=== PATIENT | female | born 1990 | race Caucasian/White ===

== ENCOUNTER 2016-09-25 18:33 | Emergency (ER) | payer OTHER ==
--- NOTE | 2016-09-25 20:12 | PD ---
HPI Chief Complaint can't feel movement Date Seen: Sep 25, 2016 Time Seen: 19:30 Travel History International Travel<30 Days: No Contact w/Intl Traveler<30Days: No Known Affected Area: No History of Present Illness HPI Ms. Perez is a 26 yo G1 at an estimated 25 5/7 weeks (MARIBEL 01/03/2017) who presents with complaint of lack of movement. Patient reports that she has not ever felt movement, so was told over phone to seek reevaluation. Patient reports recently moving to [place] from [place]; she had prior care without any complications [place] and has upcoming appointment [facility] Thursday, 09/29. Patient reports ultrasound in approximately 20 weeks which was unremarkable for any or placental abnormalities; patient specifically denies gestational hypertension and any prior infections. Patient has not had glucose challenge test yet this . No vaginal bleeding, vaginal discharge, or abdominal pain. No shortness of breath, leg swelling, chest pain, dysuria, or other symptoms. Para: 0 : 1 History Past Medical History Medical History: Denies Significant Hx Obstetric History Obstetric History G1; no complications Past Surgical History Surgical History: No Previous Surgery Family History Narrative Family History Mother with gestational diabetes Social History Alcohol Use: No Tobacco Use: No Substance Abuse: No Allergies-Medications (Allergen,Severity, Reaction): Coded Allergies: No Known Allergies (Unverified , 09/25/16) Review of Systems General / Constitutional: No: Fever, Chills HENT: No: Headaches Cardiovascular: No: Chest Pain or Discomfort Respiratory: No: Cough, Short of Breath Gastrointestinal: No: Nausea, Vomiting Genitourinary: No: Urgency, Dysuria Physical Exam Narrative GENERAL: Well-nourished, well-developed patient. SKIN: Warm and dry. HEAD: Normocephalic and atraumatic. EYES: No scleral icterus. No injection or drainage. ENT: No nasal drainage noted. Mucous membranes pink. Airway patent. NECK: Supple, trachea midline. CARDIOVASCULAR: Regular rate and rhythm without murmurs RESPIRATORY: Breath sounds equal bilaterally. Clear to auscultation ABDOMEN/GI: Abdomen soft, non-tender, bowel sounds present, no rebound, no guarding. Gravid EXTREMITIES: No cyanosis or edema. BACK: Nontender without obvious deformity. No CVA tenderness. NEUROLOGICAL: Awake and alert. Motor and sensory function grossly within normal limits. FHT's: Category: 1 Baseline: 145 Reactive: Y Variability: Moderate Decels: None Data Data Orders Vital Signs (Adult) .ON ADMISSION (09/25/16 19:57) ^ Labor Status (09/25/16 19:57) MDM Medical Record Reviewed: Yes Narrative Course / MDM Ms. Perez is a 26 yo G1 at an estimated 25 5/7 weeks (MARIBEL 01/03/2017) Assessment: -Category 1 rhythm -Patient has not felt movement -Prior reassuring US at 20 weeks Plan: -Discussed with patient that reassuring prior US in combination with current Category 1 rhythm are very reassuring of viability -Will check US to assess fetus -US documented movement, heartbeat, and adequate amniotic fluid -Will recommend routine follow-up with [facility] Thursday as previously scheduled Diagnosis Diagnosis: Primary Impression: 25 weeks gestation of Additional Impression: Decreased movement Disposition: 01 DISCHARGE HOME Condition: Stable Patient Instructions: General Instructions, Early Labor Signs (ED), Movement (ED), Abdominal Pain in (ED) Departure Forms: Tests/Procedures Ciro Pérez MD R2 Sep 25, 2016 20:12
--- NOTE | 2016-09-25 20:36 | PD ---
History of Present Illness Date Seen: Sep 25, 2016 History of Present Illness This patient is a 26-year-old at 25 weeks gestation who presents with decreased movement. Patient is a transport patient from [place] in [place] she had her care there she is trying to establish care with the [facility] down here. She talked to Flora Pennington today and told her that she was not feeling the baby and had not felt the baby move significantly at all and so the nurse garment steamer told her to come here. She denies bleeding rupture the membranes or abdominal pain. Tonight her heart rate tracing is within normal limits with good variability and no large accelerations but at 25 weeks I would not expect a lot of accelerations normally. Ultrasound was done which shows an active fetus with good amniotic fluid and an anterior placenta, even while the baby is moving patient says she doesn't feel the baby move, but she did see the baby move. Impression/plan--decreased movement and a primiparous who is seeing the baby move tonight on ultrasound the baby is quite active as normal fluid and no abnormalities were noted, she'll follow-up with her OB provider Roger Sanchez II, MD Sep 25, 2016 20:36
[2016-10-08] MEDS ORDERED: PREN1MIS10 (14:34)
== END 2016-09-26 00:12 | disposition home or self-care (01) ==
LOC: HOBED 18:33
DX: O36.8120 Decreased fetal movements, second trimester, not applicable or unspecified (principal); Z3A.25 25 weeks gestation of pregnancy
CPT/HCPCS: 76815

== ENCOUNTER 2017-01-01 09:10 | Inpatient (IN) | payer OTHER ==
[2017-01-01] VITALS (13 sets, daily range): BP systolic 85–102; BP diastolic 49–62; PULSE 57–87; RESP 16; TEMP 97.6–99; O2SAT 97–100
[~2017-01-01] VITALS: Ht 157.5 cm; Wt 86.6 kg
[~2017-01-01 09:10] MED LIST: PREN1MIS10
[2017-01-01] MEDS ORDERED: DICLOFENAC SODIUM 37.5 MG/ML VIAL IV PUSH ONE ×2 (09:54→10:35)
[2017-01-01] MEDS ORDERED: ONDANSETRON HCL 4 MG/2 ML VIAL ONE ×2 (09:55→12:24)
[2017-01-01] MEDS ORDERED: MORPHINE SULFATE PF 5 MG/10 ML VIAL ONE (09:55)
[2017-01-01] MEDS ORDERED: OXYTOCIN 10 UNIT/ML AMP ONE (09:55)
[2017-01-01] MEDS ORDERED: LACTATED RINGER'S 1000 ML INJ 1,000 ML IV ONE (10:03)
--- NOTE | 2017-01-01 10:05 | HHI.HP ---
HPI Chief Complaint scheduled Date Seen: Jan 01, 2017 Time Seen: 09:45 (Fransisco Dubois MD R1) Travel History International Travel<30 Days: No Contact w/Intl Traveler<30Days: No Known Affected Area: No (Fransisco Dubois MD R1) History of Present Illness HPI Patient is a 26-year-old at 39 weeks and 5 days who presents for a scheduled for breech presentation. She reports an uncomplicated . She denies any leakage of fluid, vaginal bleeding, contractions. She endorses movement. Review of systems negative. Para: 0 : 1 (Fransisco Dubois MD R1) History Past Medical History Medical History: Denies Significant Hx (Fransisco Dubois MD) Obstetric History Obstetric History Patient reports this is her first . (Fransisco Dubois MD) Past Surgical History Surgical History: No Previous Surgery (Fransisco Dubois MD) Family History Narrative Family History Patient's mother has a history of gestational diabetes and emergent for cord around neck and associated decel's. (Fransisco Dubois MD R1) Social History Narrative Social History Patient lives with her mother. Alcohol Use: No Tobacco Use: No Substance Abuse: No (Fransisco Dubois MD R1) Allergies-Medications (Allergen,Severity, Reaction): Coded Allergies: No Known Allergies (Unverified , 12/25/16) Home Meds Reported Medications Vit W/ Ferrous Fumara (One A Day Womens 28-0.8 & 223 mg)1 Mis Mis 10/08/16 Review of Systems General / Constitutional: No: Fever, Chills Eyes: No: Blurred Vision, Visual changes HENT: No: Headaches Cardiovascular: No: Chest Pain or Discomfort, Edema Respiratory: No: Short of Breath Gastrointestinal: No: Nausea, Vomiting, Abdominal Pain Genitourinary: No: Dysuria Musculoskeletal: No: Edema Neurologic: No: Headache (Fransisco Dubois MD R1) Physical Exam Narrative GENERAL: Well-nourished, well-developed patient. SKIN: Warm and dry. HEAD: Normocephalic and atraumatic. EYES: No scleral icterus. No injection or drainage. ENT: No nasal drainage noted. Mucous membranes pink. Airway patent. NECK: Supple, trachea midline. No JVD. CARDIOVASCULAR: Regular rate and rhythm without murmurs, gallops, or rubs. RESPIRATORY: Breath sounds equal bilaterally. No accessory muscle use. ABDOMEN/GI: Abdomen soft, non-tender, bowel sounds present, no rebound, no guarding Gravid to about 40 weeks size FHT's: Category: Category 1 Baseline: 140 Reactive: + Variability: Moderate Decels: None EXTREMITIES: No cyanosis or edema. BACK: Nontender without obvious deformity. No CVA tenderness. NEUROLOGICAL: Awake and alert. Motor and sensory grossly within normal limits. Five out of 5 muscle strength in all muscle groups. Normal speech. (Fransisco Dubois MD R1) Assessment/Plan Problem List: (1) Breech presentation (2) Delivery by section for breech presentation Assessment and Plan Patient is a 26-year-old at 39 weeks and 5 days who presents for a scheduled for breech presentation. (Fransisco Dubois MD R1) Attending Attestation I saw an examined this patient. I personally reviewed the procedure as well as the risks including pain, bleeding, infection, injury to blood vessels, nerves, organs. I advised that primary delivery poses less risks to baby than vaginal breech delivery. (Jane Irvin MD) Fransisco Dubois MD R1 Jan 01, 2017 10:05 Jane Irvin MD Jan 01, 2017 10:45
[2017-01-01 10:16] LABS: AUTOMATED NEUTROPHIL # 6.2 TH/MM3 (1.8-7.7); BASOPHIL % 0.1 % (0.0-2.0); EOSINOPHIL # 0.1 TH/MM3 (0-0.4); HEMATOCRIT 38.1 % (35.0-46.0); HEMO FLAGS DIFF FINAL; LYMPH % 20.4 % (9.0-44.0); LYMPHOCYTE # 1.8 TH/MM3 (1.0-4.8); MEAN CELL VOLUME 90.4 FL (80.0-100.0); MEAN CORPUSCULAR HEMOGLOBIN 29.9 PG (27.0-34.0); MEAN CORPUSCULAR HGB CONC 33.1 % (32.0-36.0); MONO % 7.9 % (0.0-8.0); NEUT % 70.6 % (16.0-70.0); PLATELET COUNT 173 TH/MM3 (150-450); RED BLOOD COUNT 4.21 MIL/MM3 (4.00-5.30); RED CELL DISTRIBUTION WIDTH 14.6 % (11.6-17.2); WHITE BLOOD COUNT 8.8 TH/MM3 (4.0-11.0)
[2017-01-01 10:28] LABS: BACTERIA, URINE OCC /hpf; BLOOD, URINE NEG (NEG); COMMENT (UR) CULTURE INDICATED; CULTURE IF INDICATED CULTURE INDICATED; GLUCOSE,URINE NEG (NEG); KETONE, URINE NEG (NEG); MUCUS URINE FEW /lpf (OCC); NITRITE,URINE NEG (NEG); SQUAMOUS EPITHELIAL CELL URINE 7 /hpf (0-5); TRANSITIONAL EPI CELLS, URINE <1 /hpf; URINE COLOR YELLOW (YELLW/STRAW)
[2017-01-01] MEDS ORDERED: LACTATED RINGER'S 1000 ML INJ 1,000 ML IV SCH ×2 (10:33→23:33)
[2017-01-01] MEDS ORDERED: ceFAZolin INJ 1,000 MG VIAL ONE (10:34)
[2017-01-01] MEDS ORDERED: ceFAZolin 2 GM PREMIX 50 ML IV SCH (11:15)
[2017-01-01] MEDS ORDERED: CITRIC ACID-SODIUM CITRATE LIQ 30 ML UDC PO SCH (11:45)
[2017-01-01] MEDS ORDERED: ACETAMINOPHEN 1000 MG/100 ML VIAL IV ONE ×3 (12:51→19:15)
[2017-01-01] MEDS ORDERED: OXYTOCIN 30 UNITS-500ML PREMIX 500 ML ONE ×2 (14:53→15:31)
[2017-01-01] MEDS ORDERED: DEXTROSE (INFANT/PEDS) GEL 2.5 ML/GM (40%) TUBE ONE (15:27)
[2017-01-01] MEDS ORDERED: HYDROmorphone HCL PF 2 MG/ML VIAL ONE (15:52)
[2017-01-01] MEDS ORDERED: OXYTOCIN 30 UNITS-500ML PREMIX 500 ML IV ONE (18:45)
[2017-01-01] MEDS ORDERED: KETOROLAC TROMETHAMINE 60 MG/2 ML (IM) VIAL IM PRN ×2 (18:45)
[2017-01-01] MEDS ORDERED: SODIUM CHLORIDE 0.9% FLUSH 10 ML FLUSH IV FLUSH PRN (18:45)
[2017-01-01] MEDS ORDERED: oxyCODONE/ACETAMINOPHEN 5 MG/325 MG TAB PO PRN ×2 (18:45)
[2017-01-01] MEDS ORDERED: ONDANSETRON HCL 4 MG/2 ML VIAL IV PUSH PRN (18:45)
[2017-01-01] MEDS ORDERED: SIMETHICONE 80 MG CHEWABLE TAB PO PRN (18:45)
[2017-01-01] MEDS ORDERED: HYDROmorphone HCL PF 1 MG/ML VIAL IV ONE (19:15)
[2017-01-01] MEDS ORDERED: EPIDURAL-NALOXONE HCL 0.4 MG/ML AMP IV PRN (20:30)
[2017-01-01] MEDS ORDERED: EPIDURAL-DIPHENHYDRAMINE HCL 50 MG/ML VIAL IV PUSH PRN (20:30)
[2017-01-01] MEDS ORDERED: EPIDURAL-NO SYSTEMIC NARCOTICS PRN (20:30)
[2017-01-01] MEDS ORDERED: EPIDURAL-DIPHENHYDRAMINE HCL 50 MG CAP PO PRN (20:30)
[2017-01-01] MEDS ORDERED: EPIDURAL-DO NOT ADMINISTER ANTICOAGULANTS PRN (20:30)
[2017-01-01] MEDS: SODIUM CHLORIDE 0.9% FLUSH 10 ML FLUSH IV FLUSH SCH (21:00)
[2017-01-01] MEDS: DICLOFENAC SODIUM 37.5 MG/ML VIAL IV PUSH SCH (23:02)
[2017-01-02 06:00] LABS: AUTOMATED NEUTROPHIL # 6.9 TH/MM3 (1.8-7.7); BASOPHIL % 0.2 % (0.0-2.0); EOSINOPHIL # 0.1 TH/MM3 (0-0.4); EOSINOPHIL % 1.1 % (0.0-4.0); HEMO FLAGS DIFF FINAL; LYMPH % 14.8 % (9.0-44.0); LYMPHOCYTE # 1.3 TH/MM3 (1.0-4.8); MEAN CORPUSCULAR HGB CONC 34.1 % (32.0-36.0); MONO % 5.5 % (0.0-8.0); NEUT % 78.4 % (16.0-70.0); PLATELET COUNT 133 TH/MM3 (150-450); RED CELL DISTRIBUTION WIDTH 14.5 % (11.6-17.2); WHITE BLOOD COUNT 8.8 TH/MM3 (4.0-11.0)
[2017-01-02] MEDS: DICLOFENAC SODIUM 37.5 MG/ML VIAL IV PUSH SCH (06:29)
[2017-01-02 08:55] VITALS: BP 78/50; PULSE 60; RESP 16; TEMP 98.1
--- NOTE | 2017-01-02 09:22 | HHI.OB ---
Subjective Post Operative Day: 1 Remarks Pt seen and examined this morning.Postoperative day # 1 AFVSS overnight. Incision not draining. Decreased lochia. Denies dysuria. No breast tenderness. She is feeding the baby via breast and bottle. Appetite good. No nausea or vomiting this morning. Patient has not yet had a bowel movement. -flatus. Ambulating well. Denies calf pain or shortness of breath. Otherwise, she is doing well this morning and has no other concerns. (Braulio Giordano MD R2) Objective Vitals/I&O Vital Signs Date Time Temp Pulse Resp B/P Pulse Ox O2 Delivery O2 Flow Rate FiO2 01/02/17 08:55 98.1 60 16 01/02/17 08:55 78/50 01/01/17 17:40 57 16 85/49 01/01/17 17:40 97.6 01/01/17 16:38 97.6 70 16 85/50 01/01/17 15:45 98.0 68 16 99 01/01/17 15:45 92/50 01/01/17 15:30 81 16 101/62 99 01/01/17 15:15 78 16 100/52 100 01/01/17 15:00 98.7 81 16 98/53 98 01/01/17 14:45 78 16 101/50 99 01/01/17 14:30 81 16 102/56 01/01/17 14:30 97 01/01/17 14:15 78 16 01/01/17 14:15 99.0 99 01/01/17 14:15 98/52 01/01/17 11:35 76 01/01/17 11:30 69 01/01/17 10:00 16 01/01/17 09:55 87 (Braulio Giordano MD R2) Result Diagram: 01/02/17 0503 Objective Remarks GENERAL: Well-nourished, well-developed patient. CARDIOVASCULAR: Regular rate and rhythm without murmurs, gallops, or rubs. RESPIRATORY: Breath sounds equal bilaterally. No accessory muscle use. ABDOMEN/GI: Abdomen soft, non-tender, bowel sounds present. Incision: Clean, dry and intact. Fundus: Firm, non-tender below umbilicus. GENITOURINARY: Light to moderate bleeding. EXTREMITIES: No cyanosis or edema, non-tender, without signs of DVT. Medications and IVs Current Medications Medications (Trade) Dose Ordered Sig/Yanira Route Start Time Stop Time Status Last Admin (Lr 1000 ml Inj) 1,000 ml @ 100 mls/hr Q10H IV 01/01/17 23:33 01/02/17 19:32 01/01/17 23:03 (NS Flush) 2 ml BID IV FLUSH 01/01/17 21:00 (NS Flush) 2 ml UNSCH PRN IV FLUSH 01/01/17 18:45 01/02/17 06:29 (Mylicon Chew) 80 mg QID PRN PO 01/01/17 18:45 (Tylenol) 650 mg Q6H PRN PO 01/01/17 18:45 (Motrin) 600 mg Q6H PRN PO 01/01/17 18:45 (Percocet 5-325 Mg) 1 tab Q4H PRN PO 01/01/17 18:45 (Percocet 5-325 Mg) 2 tab Q4H PRN PO 01/01/17 18:45 (Rajni-Colace) 2 tab Q12H PRN PO 01/01/17 18:45 (M-M-R Ii Inj) 0.5 ml ONCE ONCE SQ 01/02/17 16:00 01/02/17 16:01 (Boostrix Inj) 0.5 ml ONCE ONCE IM 01/02/17 16:00 01/02/17 16:01 (Zofran Inj) 4 mg Q6H PRN IV PUSH 01/01/17 18:45 Miscellaneous Information NO SYSTEMIC NARCOTICS TO BE GIVEN FO... UNSCH PRN .XX 01/01/17 20:30 01/02/17 20:29 (Narcan Inj) 0.4 mg UNSCH PRN IV 01/01/17 20:30 01/02/17 20:29 (Benadryl Inj) 25 mg Q6H PRN IV PUSH 01/01/17 20:30 01/02/17 20:29 (Benadryl) 50 mg Q6H PRN PO 01/01/17 20:30 01/02/17 20:29 Miscellaneous Information ALL NURSING DEPARTMENTS UNSCH PRN .XX 01/01/17 20:30 01/02/17 20:29 (Braulio Giordano MD R2) Assessment/Plan Problem List: (1) Breech presentation (2) Delivery by section for breech presentation Assessment and Plan 26 y/o female who is POD# 1 s/p CXN. -Continue routine care. -Percocet and Motrin PRN pain. -Encouraged OOB. Advised pelvic rest for 6 wks. Will need a f/u appt. in 1-2 wks for incision check. -Re: ctrl, she would like to use condoms, and will further discuss control options with OB provider. -Anticipate discharge in 1-[address] Albaro MD (Braulio Giordano MD R2) Attending Attestation The exam, history, and the medical decision-making described in the above note were completed with the assistance of the resident provider. I reviewed and agree with the findings presented. I attest that I had a [id number] encounter with the patient on the same day, and personally performed and documented my assessment and findings in the medical record. (Jane Irvin MD) Braulio Giordano MD R2 Jan 02, 2017 09:22 Jane Irvin MD Jan 05, 2017 10:53
[2017-01-02] MEDS: IBUPROFEN 600 MG TAB PO PRN (14:46)
[2017-01-02] MEDS: DOCUSATE SODIUM 50 MG/SENNA 8.6 MG TAB PO PRN (14:46)
[2017-01-02] MEDS ORDERED: DIPHTH/TETANUS/ACEL PERTUSSIS (BOOSTER) 0.5 ML VIAL/PFS IM ONE (16:00)
[2017-01-02] MEDS ORDERED: MEASLES, MUMPS, RUBELLA VACCINE 0.5 ML VIAL SQ ONE (16:00)
[2017-01-02] MEDS: SODIUM CHLORIDE 0.9% FLUSH 10 ML FLUSH IV FLUSH SCH (21:00)
--- NOTE | 2017-01-02 22:25 | MP ---
cc: KATHY IRVIN MD DATE OF 89 DATE OF SURGERY 01/01/17 PREOPERATIVE DIAGNOSIS 1. Intrauterine at 39 weeks and one day 2. Breach presentation POSTOPERATIVE DIAGNOSIS 1. Intrauterine at 39 weeks and one day 2. Breach presentation PROCEDURE Primary low transverse caesarean delivery SURGEON Yusuf Irvin MD ANESTHESIA Spinal. IV FLUID 1500 mL Crystalloid URINE OUTPUT 100 mL clear yellow urine ESTIMATED BLOOD LOSS 500 mL DRAINS Hopkins to gravity COMPLICATIONS None. INDICATION The patient is a 26 year old 1 with intrauterine at 39 weeks and one day gestation with persistent breach presentation who presents for a scheduled primary caesarean delivery. SURGICAL FINDINGS 1. Normal pelvic anatomy 2. Male in incomplete breach presentation and clear amniotic fluid. 3. Intact placenta with three vessel cord 4. Hemostasis at completion of procedure PREOPERATIVE ANTIBIOTICS Ancef 2 grams IV PROCEDURE IN DETAIL After the risks, benefits and alternatives of primary caesarean delivery were reviewed with the patient and all questions were answered and consent verified, the patient was transported to the operating room where spinal anesthesia was administered by the anesthesia team. SCD hose were placed on the patient's lower extremities. The patient was placed in the dorsal supine position and a Hopkins catheter was inserted under sterile condition. The patient was the prepped and draped in the normal sterile fashion in the dorsal supine position with a leftward tilt. Time out procedure was performed. Anesthesia was tested and found to be adequate. A Pfannenstiel skin incision was made with a scalpel and carried down to the underlying fascia. The fascia was incised on either side of the midline and the incision was extended laterally with the Farrell scissors. The superior aspect of the fascial incision was grasped with Anthony clamps and the rectus muscles were dissected off bluntly and sharply. This was repeated along the inferior aspect of the fascial incision. The rectus muscles were in the midline. The underlying peritoneum was entered bluntly. The incision was stretched. Bladder blade was placed. Bladder flap was created with the Metzenbaum scissors and blunt and sharp dissection. The bladder blade was replaced over the bladder flap. An incision was then made in the lower uterine segment with the scalpel. The incision was extended with the index fingers. Clear amniotic fluid was noted upon rupture of membranes. breach was present at the incision. In palpating position, one foot was palpated and was flexed and the leg was brought out of the incision. The other foot was in the levon breach presentation. The hips were elevated out of the pelvbis. Then, the knee was flexed and the leg was delivered. Gentle traction was applied until the level of the scapulae were reached. The infant was rotated to either side and the arms were delivered by sweeping down the arm. A blue towel was wrapped around the baby and the was elevated. Pressure was applied to the chin and the head delivered. After approximately 30 seconds, the cord was clamped and cut and the was handed off to the waiting team. Cord blood sample was collected. The placenta was delivered with fundal massage. The uterus was exteriorized and cleared of all clots and debris. The uterine incision was repaired with #1 Chromic in a running lock fashion. Additional figure of eight sutures were to ensure hemostasis. The posterior cul-de-sac was then irrigated and suctioned. The uterus was returned to the abdomen. The gutters were irrigated and suctioned. The incision was also irrigated, suctioned and reinspected. There was a small amount of oozing present around the middle of the incision on the lower edge. One additional figure of eight suture was placed to ensure hemostasis. Four pieces of Seprafilm were then placed over the uterine fundus and the uterine incision. All instruments were then removed from the abdomen. The fascia was then closed with #1 Vicryl in a running fashion. The subcutaneous tissue was irrigated and coagulated. The subcutaneous space was closed with interrupted sutures of 2-0 Vicryl. The skin was then closed with 4-0 Monocryl in a subcuticular fashion. The patient tolerated the procedure well. Sponge, lap, needle and instrument counts were reported as correct times three. After abdominal dressing was placed, the patient was transported to the recovery room with her infant in stable condition. Faisal Marin /2:36 PM /10:04 PM
[2017-01-03] MEDS: IBUPROFEN 600 MG TAB PO PRN ×3 (00:50→15:15)
[2017-01-03] MEDS: DOCUSATE SODIUM 50 MG/SENNA 8.6 MG TAB PO PRN (06:20)
--- NOTE | 2017-01-03 07:00 | HHI.OB ---
Subjective Post Operative Day: 2 Remarks Pt seen and examined this morning. Postoperative Day # 2 AFVSS overnight. Incision nondraining. Decreased lochia. Denies dysuria. No breast tenderness. She is feeding the baby via breast and bottle. Appetite good. No nausea or vomiting. She has had a bowel movement. Ambulating well. Denies calf pain or shortness of breath. Otherwise, she is doing well this morning and has no other concerns. Objective Vitals/I&O Vital Signs Date Time Temp Pulse Resp B/P Pulse Ox O2 Delivery O2 Flow Rate FiO2 01/02/17 08:55 98.1 60 16 01/02/17 08:55 78/50 Result Diagram: 01/02/17 0503 Objective Remarks GENERAL: Well-nourished, well-developed patient. CARDIOVASCULAR: Regular rate and rhythm without murmurs, gallops, or rubs. RESPIRATORY: Breath sounds equal bilaterally. No accessory muscle use. ABDOMEN/GI: Abdomen soft, non-tender, bowel sounds present. Incision: Clean, dry and intact. Fundus: Firm, non-tender below umbilicus. GENITOURINARY: Light to moderate bleeding. EXTREMITIES: No cyanosis or edema, non-tender, without signs of DVT. Medications and IVs Current Medications Medications (Trade) Dose Ordered Sig/Yanira Route Start Time Stop Time Status Last Admin (NS Flush) 2 ml BID IV FLUSH 01/01/17 21:00 (NS Flush) 2 ml UNSCH PRN IV FLUSH 01/01/17 18:45 01/02/17 06:29 (Mylicon Chew) 80 mg QID PRN PO 01/01/17 18:45 (Tylenol) 650 mg Q6H PRN PO 01/01/17 18:45 (Motrin) 600 mg Q6H PRN PO 01/01/17 18:45 01/03/17 06:20 (Percocet 5-325 Mg) 1 tab Q4H PRN PO 01/01/17 18:45 (Percocet 5-325 Mg) 2 tab Q4H PRN PO 01/01/17 18:45 (Rajni-Colace) 2 tab Q12H PRN PO 01/01/17 18:45 01/03/17 06:20 (Zofran Inj) 4 mg Q6H PRN IV PUSH 01/01/17 18:45 Assessment/Plan Problem List: (1) Breech presentation (2) Delivery by section for breech presentation Assessment and Plan 26 y/o female who is POD# 2 s/p CXN. -Continue routine care. -Percocet and Motrin PRN pain. -Encouraged OOB. Advised pelvic rest for 6 wks. Will need a f/u appt. in 1-2 wks for incision check. -Re: ctrl, she would like to use condoms, and will further discuss control options with OB provider. -Anticipate discharge today or tomorrow depending on baby's discharge. MD Nicolas Girard Dr[address]Stefano Jones MD R1 Jan 03, 2017 07:00
[2017-01-03] MEDS ORDERED: SENN1TAB PO (07:02)
[2017-01-03] MEDS ORDERED: OXYC1TAB63 PO (07:02)
[2017-01-03] MEDS ORDERED: IBUP-232 PO (07:02)
--- NOTE | 2017-01-03 07:03 | HHI.DCPOC ---
Discharge Care Plan Diagnosis: (1) Delivery by section for breech presentation Report Symptoms to Your Doctor -Temperature above 100.5 degrees -Redness, of incision or excessive or foul smelling drainage -Unusual pain or calf pain -Increased vaginal bleeding -Painful or difficulty urinating -Feelings of extreme sadness or anxiety after 2 weeks Goals to Promote Your Health * To prevent worsening of your condition and complications * To maintain your health at the optimal level Directions to Meet Your Goals Take your medications as prescribed Follow your dietary instruction Follow activity as directed Ensure plenty of rest for recovery Drink fluids for hydration Keep your appointments as scheduled Take your immunizations and boosters as scheduled If your symptoms worsen call your PCP, if no PCP go to Urgent Care Center or Emergency Room Smoking is Dangerous to Your Health. Avoid second hand smoke Call the 24-hour crisis hotline for domestic abuse at Stefano Valenzuela MD R1 Jan 03, 2017 07:03
[2017-01-03 07:27] VITALS: BP 102/62; PULSE 76; RESP 18; TEMP 97.9
[2017-01-03] MEDS: SODIUM CHLORIDE 0.9% FLUSH 10 ML FLUSH IV FLUSH SCH (09:00)
[2017-01-03] MEDS: ACETAMINOPHEN 325 MG TAB PO PRN (15:29)
[2017-01-03 20:00] VITALS: BP 115/69; PULSE 66; RESP 18; TEMP 97.7; O2SAT 99
[2017-01-04] MEDS: IBUPROFEN 600 MG TAB PO PRN ×2 (00:10→10:55)
[2017-01-04 08:50] VITALS: BP 103/71; PULSE 59; RESP 18; TEMP 97.8
[2017-01-04] MEDS: SODIUM CHLORIDE 0.9% FLUSH 10 ML FLUSH IV FLUSH SCH (09:00)
--- NOTE | 2017-01-04 10:01 | HHI.OB ---
Subjective Post Operative Day: 3 Remarks 26 year old female s/p due to breech position at 39/5 wks gestation, POD 3. AFVSS. Patient reports she is feeling well. Bleeding is decreasing and pain is well-controlled. She is breast and formula feeding and bonding well with baby. Ambulating without difficulties. She is tolerating a diet without nausea or vomiting. Denies chest pain, dysuria, shortness of breath , or calf pain. (Marla Mayorga MD R2) Objective Vitals/I&O Vital Signs Date Time Temp Pulse Resp B/P Pulse Ox O2 Delivery O2 Flow Rate FiO2 01/04/17 08:50 97.8 59 18 103/71 01/03/17 20:00 115/69 01/03/17 20:00 97.7 66 18 01/03/17 20:00 99 (Marla Mayorga MD R2) Result Diagram: 01/02/17 0503 Objective Remarks GENERAL: Well-nourished, well-developed patient. CARDIOVASCULAR: Regular rate and rhythm without murmurs, gallops, or rubs. RESPIRATORY: Breath sounds equal bilaterally. No accessory muscle use. ABDOMEN/GI: Abdomen soft, non-tender Incision: Clean, dry and intact. Fundus: Firm, non-tender below umbilicus. GENITOURINARY: Light to moderate bleeding. EXTREMITIES: No cyanosis or edema, non-tender, without signs of DVT. Medications and IVs Current Medications Medications (Trade) Dose Ordered Sig/Yanira Route Start Time Stop Time Status Last Admin (NS Flush) 2 ml BID IV FLUSH 01/01/17 21:00 (NS Flush) 2 ml UNSCH PRN IV FLUSH 01/01/17 18:45 01/02/17 06:29 (Mylicon Chew) 80 mg QID PRN PO 01/01/17 18:45 (Tylenol) 650 mg Q6H PRN PO 01/01/17 18:45 01/03/17 15:29 (Motrin) 600 mg Q6H PRN PO 01/01/17 18:45 01/04/17 00:10 (Percocet 5-325 Mg) 1 tab Q4H PRN PO 01/01/17 18:45 (Percocet 5-325 Mg) 2 tab Q4H PRN PO 01/01/17 18:45 (Rajni-Colace) 2 tab Q12H PRN PO 01/01/17 18:45 01/03/17 06:20 (Zofran Inj) 4 mg Q6H PRN IV PUSH 01/01/17 18:45 (Marla Mayorga MD R2) Assessment/Plan Problem List: (1) Breech presentation (2) Delivery by section for breech presentation Assessment and Plan 26 y/o female who is POD# 3 s/p CXN for breech position. -Continue routine care. -Percocet and Motrin PRN pain. -Encouraged OOB. Advised pelvic rest for 6 wks. Will need a f/u appt. in 1 wk for incision check. -Re: ctrl, she would like to use condoms, and will further discuss control options with OB provider. -Anticipate discharge today sdw (Marla Mayorga MD R2) Attending Attestation POD#3 s/p Doing well D/c home today F/u one week for incision check Patient seen and examined with Dr. Mayorga (Jeanette Nguyen MD) Marla Mayorga MD R2 Jan 04, 2017 10:01 Jeanette Nguyen MD Jan 09, 2017 09:39
[2017-01-04] MEDS: ACETAMINOPHEN 325 MG TAB PO PRN (10:55)
== END 2017-01-04 11:52 | disposition home or self-care (01) | DRG 766 ==
LOC: H2EB 09:10 → H1EA 16:27
PROVIDERS: ADMIT Obstetrics & Gynecology; ATTEND Obstetrics & Gynecology
PROC: 10D00Z1 Extraction of Products of Conception, Low, Open Approach (ICD-10-PCS; principal; 2017-01-01)
DX: O32.1XX0 Maternal care for breech presentation, not applicable or unspecified (principal); Z37.0 Single live birth; Z3A.39 39 weeks gestation of pregnancy
CPT/HCPCS: 59025; 76815; 81001; 85025; 86850; 86900; 86901; 87086; 90707; 90715; C1765; J0131; J0690; J1130; J1170; J2274; J2405; J2590; J3010; J7120

== ENCOUNTER 2017-05-05 16:09 | Emergency (ER) | payer SELFPAY ==
[~2017-05-05] VITALS: Ht 157.5 cm; Wt 85.0 kg
[~2017-05-05 16:09] MED LIST changes: +IBUP-232 PO; +LEVO1IUD4
[2017-05-05 16:11] VITALS: BP 136/89; PULSE 95; RESP 18; TEMP 98.6; O2SAT 96
[2017-05-05] MEDS ORDERED: PERI0.126 SWISH-SPIT (16:35)
[2017-05-05] MEDS ORDERED: PENI500T PO (16:35)
[2017-05-05] MEDS ORDERED: IBUP800T23 PO (16:35)
--- NOTE | 2017-05-05 16:35 | PD ---
HPI Chief Complaint: Oral / Dental Pain or Problem Time Seen by Provider: 16:24 Travel History International Travel<30 days: No Contact w/Intl Traveler<30days: No Traveled to known affect area: No History of Present Illness HPI 26 year-old female presents to the emergency part of her pain in her left mandibular wisdom tooth worsening over the last 3-4 days. Patient denies any trauma. No fever or chills. States that she noticed swelling yesterday. Rates the pain a constant, throbbing. Radiates to her left ear. No other symptoms to report. PFSH Past Medical History Medical History: Denies Significant Hx ?: Not LMP: 04/2017 Social History Alcohol Use: No Tobacco Use: No Allergies-Medications (Allergen,Severity, Reaction): Coded Allergies: No Known Allergies (Unverified , 05/05/17) Reported Meds & Prescriptions Reported Meds & Active Scripts Active Peridex Liq (Chlorhexidine Gluconate (Mouth) Liq) 0.12% Soln 15 Ml SWISH-SPIT BID 14 Days Penicillin V Potassium 500 Mg Tab 500 Mg PO Q6H 10 Days Ibuprofen 800 Mg Tab 800 Mg PO Q8H PRN Ibuprofen 600 Mg Tab 600 Mg PO Q6H PRN Reported Kyleena (Levonorgestrel (Iud)) 19.5 Mg Iud One A Day Womens 28-0.8 & 223 mg ( Vit W/ Ferrous Fumara) 1 Mis Mis Review of Systems Except as stated in HPI: all other systems reviewed are Neg Physical Exam Narrative GENERAL: Well-nourished, well-developed female patient in no acute distress SKIN: Focused skin assessment warm/dry. HEAD: Normocephalic. Mild edema along the left mandible without induration. No fluctuation EYES: No scleral icterus. No injection or drainage. ENT: Mucosa pink and moist. No erythema or exudates. No uvular edema. No uvular , palatal, or tonsillar deviation. Airway patent. Nasal turbinates appear normal without nasal blood, purulent drainage or septal hematoma. DENTAL: No loose or chipped teeth. Significant erythema and edema since edema and erythema surrounding the left mandibular third molar. No appreciable abscess. No malocclusion. NECK: Supple, trachea midline. No JVD or lymphadenopathy. CARDIOVASCULAR: Regular rate and rhythm without murmurs, gallops, or rubs. RESPIRATORY: Breath sounds equal bilaterally. No accessory muscle use. Data Data Last Documented VS Vital Signs Date Time Temp Pulse Resp B/P (MAP) Pulse Ox O2 Delivery O2 Flow Rate FiO2 05/05/17 16:41 05/05/17 16:11 98.6 95 18 96 Room Air MDM Medical Decision Making Medical Screen Exam Complete: Yes Emergency Medical Condition: Yes Medical Record Reviewed: Yes Differential Diagnosis Dental caries versus dental abscess versus gingivitis versus pulpitis Narrative Course 26-year-old female presents to emergency department for evaluation of dental pain. Patient does have dental caries in the left mandibular third molar with significant gingival erythema and edema. She'll be started on oral antibiotics , provide pain control, and encouraged to seek dental evaluation. She agrees to return immediately with any acute worsening of symptoms. Diagnosis Primary Impression: Pain due to dental caries Additional Impression: Gingivitis Referrals: Primary Care Physician Patient Instructions: Dental Caries (ED), General Instructions Additional Instructions: Follow-up with a primary care provider Seek dental evaluation Return immediately with any acute worsening of symptoms Med/Other Pt SpecificInfo: Prescription(s) given Scripts Chlorhexidine Gluconate (Mouth) Liq (Peridex Liq) 0.12% Soln 15 ML SWISH-SPIT BID for 14 Days, #420 ML 0 Refills Prov: Marietta Obrien 05/05/17 Penicillin V Potassium (Penicillin V Potassium) 500 Mg Tab 500 MG PO Q6H for Infection for 10 Days, #40 TAB 0 Refills Prov: Marietta Obrien 05/05/17 Ibuprofen (Ibuprofen) 800 Mg Tab 800 MG PO Q8H Y for Pain/Inflammation, #30 TAB 0 Refills Prov: Marietta Obrien 05/05/17 Disposition: 01 DISCHARGE HOME Condition: Stable Marietta Obrien May 05, 2017 16:35
== END 2017-05-05 16:40 | disposition home or self-care (01) ==
LOC: NEPK 16:09
DX: K02.9 Dental caries, unspecified (principal); K05.10 Chronic gingivitis, plaque induced
CPT/HCPCS: 99284

== ENCOUNTER 2017-12-20 13:14 | Emergency (ER) | payer SELFPAY ==
[~2017-12-20] VITALS: Ht 157.5 cm; Wt 75.0 kg
[~2017-12-20 13:14] MED LIST changes: +IBUP1TAB7 PO; +PENI500T PO; +PERI0.126 SWISH-SPIT
[2017-12-20 13:25] VITALS: BP 118/75; PULSE 71; RESP 18; TEMP 99.7; O2SAT 98
[2017-12-20] MEDS ORDERED: IBUP1TAB7 PO (13:42)
[2017-12-20] MEDS ORDERED: AMOX500C PO (13:42)
--- NOTE | 2017-12-20 13:42 | PD ---
HPI Chief Complaint: Oral / Dental Pain or Problem Time Seen by Provider: 13:29 Travel History International Travel<30 days: No Contact w/Intl Traveler<30days: No Traveled to known affect area: No History of Present Illness HPI 27-year-old female presents to the emergency department with complaint of right upper and lower wisdom tooth pain for the past 4-5 days. Denies fever, vomiting. Denies sore throat, difficulty swallowing, unusual drooling. Rates pain 5/10. Says it is worse at night when she sleeps. Better throughout the day. Has taken 800 mg ibuprofen for symptom management. No primary care provider. No dentist. No known allergies. Denies significant past medical history. Has no other medical complaints. No other modifying factors or associated signs and symptoms. PFSH Past Medical History ?: Not LMP: NOVEMBER 2017 Social History Alcohol Use: No Tobacco Use: No Allergies-Medications (Allergen,Severity, Reaction): Coded Allergies: No Known Allergies (Unverified , 05/05/17) Reported Meds & Prescriptions Reported Meds & Active Scripts Active Ibuprofen 800 Mg Tab 800 Mg PO Q6HR PRN Amoxicillin 500 Mg Cap 500 Mg PO BID 10 Days Peridex Liq (Chlorhexidine Gluconate (Mouth) Liq) 0.12% Soln 15 Ml SWISH-SPIT BID 14 Days Penicillin V Potassium 500 Mg Tab 500 Mg PO Q6H 10 Days Ibuprofen 800 Mg Tab 800 Mg PO Q8H PRN Ibuprofen 600 Mg Tab 600 Mg PO Q6H PRN Reported Kyleena (Levonorgestrel (IUD)) 19.5 Mg Iud One A Day Womens 28-0.8 & 223 mg ( Vit W/ Ferrous Fumara) 1 Mis Mis Review of Systems Except as stated in HPI: all other systems reviewed are Neg Physical Exam Narrative GENERAL: Well-nourished, well-developed female patient, in no acute distress; afebrile, nontoxic-appearing SKIN: Warm and dry. HEAD: Atraumatic. Normocephalic. No facial edema, erythema, tenderness on palpation. No lymphadenopathy. EYES: Pupils equal and round. No scleral icterus. No injection or drainage. ENT: Mucosa pink and moist. No erythema or exudates. No uvular edema. No uvular , palatal, or tonsillar deviation. Airway patent. EARS: Bilateral pinnae and external canals appear within normal limits. Bilateral tympanic membranes without erythema, dullness or perforation. MOUTH: Mucous membranes moist, no lesions, tongue and gums appear normal. Right upper and lower wisdom teeth with tenderness on palpation. Surrounding gingiva is without erythema, edema, drainage. No obvious abscess noted. NECK: Trachea midline. No lymphadenopathy. CARDIOVASCULAR: Regular rate. RESPIRATORY: No accessory muscle use. GASTROINTESTINAL: Flat. MUSCULOSKELETAL: No obvious deformities. No clubbing. No cyanosis. No edema. NEUROLOGICAL: Awake and alert. Oriented 3. No obvious cranial nerve deficits. Motor grossly within normal limits. Normal speech. PSYCHIATRIC: Appropriate mood and affect; insight and judgment normal. Data Data Last Documented VS Vital Signs Date Time Temp Pulse Resp B/P (MAP) Pulse Ox O2 Delivery O2 Flow Rate FiO2 12/20/17 13:25 99.7 71 18 118/75 (89) 98 Orders Orders Ed Discharge Order (12/20/17 13:42) [facility] Medical Decision Making Medical Screen Exam Complete: Yes Emergency Medical Condition: Yes Medical Record Reviewed: Yes Differential Diagnosis Dental pain, dental abscess, impacted dentition Narrative Course 27-year-old female with dental pain to right upper and lower wisdom teeth. No facial edema, erythema. No obvious abscess. Patient provided emergency dental information sheet for follow-up. Instructed patient to follow-up with dentist. Amoxicillin, ibuprofen prescribed for home. Instructed patient to follow up with primary care provider. Patient verbalizes understanding and agreement with treatment plan. Patient is medically cleared and stable for discharge. Discussed reasons to return to the emergency department. Patient agrees with treatment plan. The patients vital signs are stable and the patient is stable for outpatient follow-up and treatment. Patient discharged home, stable and in no acute distress. Diagnosis Primary Impression: Pain, dental Referrals: [facility] Dentist Primary Care Physician Patient Instructions: Dental Abscess (ED), General Instructions, Toothache (ED) Additional Instructions: Complete full course of antibiotics Ibuprofen or Tylenol as directed and as needed to reduce pain and inflammation Warm or cool compresses to the affected area Follow-up with dentist Follow-up with primary care provider Return to emergency department immediately with worsening of symptoms Med/Other Pt SpecificInfo: Prescription(s) given Scripts Ibuprofen (Ibuprofen) 800 Mg Tab 800 MG PO Q6HR Y for PAIN, #20 TAB 0 Refills Prov: Annie Navarro 12/20/17 Amoxicillin (Amoxicillin) 500 Mg Cap 500 MG PO BID for Infection for 10 Days, #20 CAP 0 Refills Prov: Annie Navarro 12/20/17 Disposition: 01 DISCHARGE HOME Condition: Stable Annie Navarro December 20, 2017 13:42
== END 2017-12-20 14:02 | disposition home or self-care (01) ==
LOC: NEPD 13:14
DX: K08.89 Other specified disorders of teeth and supporting structures (principal)
CPT/HCPCS: 99283